=== PATIENT | male | born 1995 | race Caucasian/White ===

== ENCOUNTER 2018-07-10 18:59 | Emergency (ER) | payer BC ==
[~2018-07-10] VITALS: Ht 193 cm; Wt 80.3 kg
[2018-07-10] MEDS ORDERED: KETOROLAC TROMETHAMINE 60 MG/2 ML VIAL IM ONE (19:30)
== END 2018-07-10 19:51 | disposition home or self-care (01) ==
LOC: FSED 18:59
DX: M54.5 Low back pain (principal); S39.012A Strain of muscle, fascia and tendon of lower back, initial encounter; X50.0XXA Overexertion from strenuous movement or load, initial encounter
CPT/HCPCS: 99282; J1885